=== PATIENT | female | born 1990 | race Caucasian/White ===

== ENCOUNTER 2018-02-18 10:53 | Emergency (ER) | payer BC ==
[~2018-02-18] VITALS: Ht 154.9 cm; Wt 49.9 kg
[2018-02-18] MEDS: ceFAZolin 1GM/100ML 100 ML IV ONE (12:50)
[2018-02-18 13:08] VITALS: BP 126/72
== END 2018-02-18 14:13 | disposition home or self-care (01) ==
LOC: ER 10:57
DX: S31.821A Laceration without foreign body of left buttock, initial encounter (principal); V28.0XXA Motorcycle driver injured in noncollision transport accident in nontraffic accident, initial encounter; Y93.89 Activity, other specified; Y99.8 Other external cause status; Y92.89 Other specified places as the place of occurrence of the external cause
CPT/HCPCS: 12031; 96365; 99284; J0690